=== PATIENT | male | born 1970 | race Caucasian/White ===

== ENCOUNTER 2018-04-07 14:27 | Emergency (ER) | payer MEDICAID ==
[~2018-04-07] VITALS: Ht 170.2 cm; Wt 106.6 kg
[2018-04-07 14:38] VITALS: BP 146/93
== END 2018-04-07 15:26 | disposition home or self-care (01) ==
LOC: ER 14:32
DX: E11.65 Type 2 diabetes mellitus with hyperglycemia (principal); Z85.47 Personal history of malignant neoplasm of testis
CPT/HCPCS: 82962-TC